=== PATIENT | male | born 1960 | race Two or more races ===

== ENCOUNTER 2017-06-17 17:51 | Inpatient (IN) | payer OTHER ==
[~2017-06-17] VITALS: Ht 175.3 cm; Wt 102.7 kg
[2017-06-17] MEDS ORDERED: RIVA10TA PO (18:00)
[2017-06-17] MEDS ORDERED: ALBU8.5H2 IH (18:00)
[2017-06-17] MEDS ORDERED: CARB-93 PO (18:00)
--- NOTE | 2017-06-17 18:00 | NUR ---
PATIENT BIB RA 39, FOUND IN A W/C INFRONT OF APARTMENT COMPLEX,ALTERED MENTAL STATUS. PATIENT IS CURRENTLY A/OX 2, LETHARGIC, BUT AROUSABLE. ABLE TO FOLLOW DIRECTION. PATIENT BREATHING EVEN AND UNLABORED ON ROOM AIR. NO SOB. VITALS STABLE. SAFETY AND COMFORT MEASURES IN PLACE. AWAITING MD ORDERS.
--- NOTE | 2017-06-17 18:25 | NUR ---
NEW IV STARTED ON RAC, 18 G. BLOOD DRAWN AND SENT TO LAB.
--- NOTE | 2017-06-17 18:30 | NUR ---
URINE OBTAINED AND SENT TO LAB.
[2017-06-17 18:32] LABS: BASOPHILS % (AUTO) 0.5 % (0.0-2.0); EOSINOPHILS # (AUTO) 0.3 /CMM (0.0-0.7); EOSINOPHILS % (AUTO) 6.7 % (0.0-6.0); HEMATOCRIT 43 % (39-51); HEMOGLOBIN 14.4 g/dL (13.5-17.5); LYMPHOCYTES # (AUTO) 1.9 /CMM (0.8-4.8); LYMPHOCYTES % (AUTO) 36.5 % (20.0-44.0); MEAN CORPUSCULAR HEMOGLOBIN 30 PG (26.0-33.0); MEAN CORPUSCULAR HGB CONC 34 g/dl (31.0-36.0); MEAN CORPUSCULAR VOLUME 87 fL (80-96); MONOCYTES # (AUTO) 0.3 /CMM (0.1-1.30); MONOCYTES % (AUTO) 6.4 % (2.0-12.0); NEUTROPHILS # (AUTO) 2.6 /CMM (1.8-8.9); NEUTROPHILS % (AUTO) 49.9 % (43.0-81.0); PLATELET COUNT (AUTO) 237 /CMM (150-450); RDW COEFFICIENT OF VARIATION 13.7 (11.5-15.0); RED BLOOD CELL COUNT(AUTO) 4.89 MIL/uL (4.5-6.0); WHITE BLOOD COUNT (AUTO) 5.2 K/uL (4.3-11.0)
--- NOTE | 2017-06-17 18:35 | NUR ---
PATIENT TAKEN TO CT VIA STRETCHER.
[2017-06-17 18:44] LABS: SERUM AMMONIA 10 umol/L (11-32)
--- NOTE | 2017-06-17 18:49 | NUR ---
PATIENT RETURNED FROM CT IN STABLE CONDITION.
[2017-06-17 18:50] LABS: CALCIUM, SERUM 8.1 mg/dL (8.5-10.1); CARBON DIOXIDE 23 mmol/L (21-32); CHLORIDE 105 mmol/L (98-107); CREATININE 0.9 mg/dL (0.6-1.3); GLUCOSE 142 mg/dL (74-106); INR 0.98 (0.87-1.13); POTASSIUM 3.5 mmol/L (3.5-5.1); PROTHROMBIN TIME 10.2 SECS (9.5-12.7); SODIUM SERUM 138 mmol/L (136-145); UREA NITROGEN, BLOOD 12 mg/dL (7-18)
[2017-06-17 18:54] LABS: ALANINE AMINOTRANSFERASE 11 U/L (12-78); ALBUMIN 3.4 g/dL (3.4-5.0); ALCOHOL, BLOOD 15 mg/dL (0-0); ALKALINE PHOSPHATASE 92 U/L (46-116); ASPARTATE AMINOTRANSFERASE 31 U/L (15-37); BILIRUBIN,TOTAL 0.3 mg/dL (0.2-1.0)
[2017-06-17 18:54] LABS: APPEARANCE,URINE Clear (CLEAR); BILIRUBIN,URINE Negative (NEGATIVE); BLOOD, URINE Small Ery/uL (NEGATIVE); COLOR,URINE Yellow (YELLOW); KETONES,URINE Negative (NEGATIVE); LEUKOCYTE ESTERASE ,URINE Small (NEGATIVE); NITRITE, URINE Positive (NEGATIVE); PH,URINE 5.5 (5.0-8.0); PROTEIN,URINE Negative (NEGATIVE); UGLUCOSE Negative (NEGATIVE); UROBILINOGEN,URINE 0.2 EU/dL (0.2)
[2017-06-17 18:55] LABS: ACETAMINOPHEN < 2 ug/ml (10-30); SALICYLATE 1.6 mg/dL (2.8-20.0); TROPONIN I < 0.017 ng/mL (0.00-0.056)
[2017-06-17 18:59] LABS: BACTERIA,URINE Many /HPF (None Seen); RBC,URINE 0-2 /HPF (0-2)
[2017-06-17 19:00] LABS: SQUAMOUS EPITHELIAL CELL,UR Few /HPF (None Seen); WBC,URINE 81-100 /HPF (0-3)
--- NOTE | 2017-06-17 19:24 | NUR ---
CALLED [employer] DIET CONSULTANT WAS PAGED.
--- NOTE | 2017-06-17 19:43 | NUR ---
REPORT GIVEN TO WILLIAN MARTÍNEZ FOR DAXA.
--- NOTE | 2017-06-17 20:40 | NUR ---
RN NOTES ADMITTED A 56 YEARS OLD MALE PT FROM ER WITH PRIMARY DIAGNOSIS OF SEPSIS UNDER DR BELLO. PT IS ALERT AND ORIENTED X3, NO SOB, NOT IN DISTRESS, ON ROOM AIR WITH GOOD SATURATION. PT VERBALIZED MILD HEADACHE, DECLINE TO TAKE PAIN PILL AT THIS TIME. ATTACHED TO TELE MONITOR WHICH READS SINUS BRADYCARDIA WITH HEART RATE AT 55. IV ACCESS ON RIGHT AC PATENT AND INTACT. SKIN CLEAR AND INTACT. WITH SUPRAPUBIC CATHETER INTACT, WITH CLEAR URINE OUTPUT WITH STRONG SCENT OF URINE NOTED. KEPT COMFORTABLE AND ATTENDED. FALL PRECAUTION OBSERVED. ALL ORDERS NOTED AND CARRIED OUT.
[2017-06-17 20:45] VITALS: BP 121/73
--- NOTE | 2017-06-17 21:00 | NUR ---
RN NOTES PT HAS AN ORDER FOR 1:1 SITTER, CHARGE NURSE AND BEHAVIORIST MADE AWARE. NO SITTER AVAILABLE AT THIS TIME, WILL DO FREQUENT VISUAL CHECK FOR SAFETY. DR BELLO MADE AWRE.
--- NOTE | 2017-06-17 21:43 | NUR ---
RN NOTES PT COMPLAINS OF HEADACHE, TYLENOL 650 MG TAB GIVEN PO AND TOLERATED WELL. WILL CONTINUE TO MONITOR PT.
[2017-06-17 23:42] VITALS: BP 121/73
[2017-06-18] VITALS: BP 133/78
--- NOTE | 2017-06-18 02:30 | NUR ---
RN NOTES SEEN AND EXAMINED BY DR BELLO, NEW ORDERS MADE AND CARRIED OUT.
[2017-06-18 04:00] VITALS: BP 119/73
--- NOTE | 2017-06-18 04:03 | NUR ---
RN NOTES PT COMPLAINS OF PAIN ON SUPRA PUBIC AREA 05/10, MORPHINE SULFATE 2MG GIVEN IV. WILL CONTINUE TO MONITOR PT.
[2017-06-18 07:08] VITALS: BP 133/80
--- NOTE | 2017-06-18 07:11 | NUR ---
RN NOTES PT ASLEEP, HOB ELEVATED, BREATHING REGULAR AND UNLABORED, ON ROOM AIR WITH GOOD SATURATION. VITAL SIGNS STABLE,AFEBRILE. TELEMONITOR READS SINUS BRADYCARDIA AT 53. NO EPISODE OF SEIZURE, NO EPISODE OF NAUSEA AND VOMITING. PAIN AT TOLERABLE LEVEL. SUPRA PUBIC CATH INTACT, NOTED WITH SEDIMENTS ON THE URINE. ALL NEEDS ATTENDED. FREQUENT VISUAL CHECK DONE. WILL ENDORSE TO MORNING RN FOR CONTINUITY OF CARE.
--- NOTE | 2017-06-18 07:30 | NUR ---
RN OPEN NOTES RECEIVED REPORT FROM VETERINARY SURGERY TECHNOLOGIST NURSE. WILL CONTINUE TO MONITOR AND ASSESS PATIENT
[2017-06-18 07:33] LABS: INR 0.94 (0.87-1.13)
[2017-06-18 07:36] LABS: BASOPHILS % (AUTO) 0.8 % (0.0-2.0); EOSINOPHILS # (AUTO) 0.4 /CMM (0.0-0.7); EOSINOPHILS % (AUTO) 8.5 % (0.0-6.0); HEMATOCRIT 40 % (39-51); HEMOGLOBIN 13.6 g/dL (13.5-17.5); MEAN CORPUSCULAR HEMOGLOBIN 30 PG (26.0-33.0); MEAN CORPUSCULAR HGB CONC 34 g/dl (31.0-36.0); MEAN CORPUSCULAR VOLUME 87 fL (80-96); MONOCYTES # (AUTO) 0.5 /CMM (0.1-1.30); MONOCYTES % (AUTO) 9.4 % (2.0-12.0); NEUTROPHILS # (AUTO) 2.1 /CMM (1.8-8.9); NEUTROPHILS % (AUTO) 41.3 % (43.0-81.0); PLATELET COUNT (AUTO) 229 /CMM (150-450); RDW COEFFICIENT OF VARIATION 13.6 (11.5-15.0); RED BLOOD CELL COUNT(AUTO) 4.54 MIL/uL (4.5-6.0); WHITE BLOOD COUNT (AUTO) 5.1 K/uL (4.3-11.0)
[2017-06-18 08:02] LABS: BILIRUBIN,TOTAL 0.3 mg/dL (0.2-1.0); CALCIUM, SERUM 8.1 mg/dL (8.5-10.1); CREATININE 0.9 mg/dL (0.6-1.3); TOTAL PROTEIN, SERUM 6.1 g/dL (6.4-8.2)
[2017-06-18 08:26] LABS: CREATINE KINASE MB 0.9 ng/mL (0-3.6)
[2017-06-18 16:00] VITALS: BP 138/81
--- NOTE | 2017-06-18 16:00 | NUR ---
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
--- NOTE | 2017-06-18 18:44 | NUR ---
RN CLOSING NOTES PATIENT IS ALERT AND ORIENTED TO TIME, PLACE AND NAME. NO SIGNS AND SYMPTOMS OF DISTRESS. DENIED PAIN. IV SITE IS PATENT AND INTACT. BED IN LOW POSITION, LOCKED AND TWO SIDE RAILS ARE UP. ALL NURSING CARE ANTICIPATED. PATIENT KEPT CLEAN AND DRY. PENDING PT IN AM. PENDING DR CAGE NEUROLOGIST CONSULT IN AM. ALL DUE MEDS WERE GIVEN. WILL ENDORSE TO GEAR GRINDING MACHINE OPERATOR NURSE
--- NOTE | 2017-06-18 19:20 | NUR ---
MS/RN OPENING NOTES PT AWAKE, SITTING UP IN BED, HIGH FOWLERS. ON ROOM AIR, BREATHING EVEN AND UNLABORED. NO S/S OF PAIN OR DISTRESS. TYLENOL ADMINISTERED FOR HEADACHE. A/OX4. SUPRAPUBIC CATH NOTED. IV TO RAC PATENT AND INTACT. BED IN LOW/LOCKED POSITION WITH CALL LIGHT IN REACH. SIDE RAILS UPX2. WILL CONTINUE TO MONITOR
[2017-06-18 20:00] VITALS: BP 144/81
--- NOTE | 2017-06-19 04:04 | NUR ---
MS/RN NOTES PT INITIALLY QUESTIONED/REFUSED SCHEDULED MYSOLINE DOSE, STATING THAT THE PREVIOUS NURSE SPOKE TO THE MD AND PLANNED TO HOLD DOSE UNTIL SEEN BY NEUROLOGIST. CHECKED LATEST MD REPORT AND MISUNDERSTOOD HIS NOTE. APPEARED THAT MEDICATION WAS STOPPED BECAUSE IT CAUSED HIS SEIZURE...REEDUCATED PT ABOUT MD WANTING TO CONTINUE HIS MEDICATION AND BE SEEN BY NEUROLOGIST. PT VERBALIZED UNDERSTANDING. MYSOLINE ADMINISTERED
--- NOTE | 2017-06-19 07:49 | NUR ---
MS/RN CLOSING NOTES PT AWAKE, SITTING UP IN BED. A/OX4. BREATHING EVEN AND UNLABORED. DENIES SOB OR PAIN AT THIS TIME. SUPRAPUBIC CATH IN PLACE AND DRAINING WELL. RAC PATENT AND INTACT. BED IN LOW/LOCKED POSITION WITH CALL LIGHT IN REACH. SIDE RAILS UPX2 AND BED ALARM ON FOR SAFETY. MADE PT COMFORTABLE DURING SHIFT. ALL NEEDS MET. ENDORSED TO AM SHIFT DAXA.
--- NOTE | 2017-06-19 07:50 | NUR ---
RESOURCE ANALYST NOTES PT AWAKE, IN BED. A/OX4. BREATHING EVEN AND UNLABORED. DENIES SOB OR PAIN AT THIS TIME. SUPRAPUBIC CATH IN PLACE AND DRAINING WELL. PIV ON RAC PATENT AND FLUSHES WELL. BED IN LOW/LOCKED POSITION WITH CALL LIGHT IN REACH. SIDE RAILS UPX2 AND BED ALARM ON FOR SAFETY. WILL CONTINUE TO MONITOR.
[2017-06-19 08:00] VITALS: BP 133/78
[2017-06-19 16:04] VITALS: BP 104/57
--- NOTE | 2017-06-19 19:02 | NUR ---
RN MS NOTES PATIENT ALERT AND ORIENTED, VERBALLY RESPONSIVE, DENIES PAIN AT THIS TIME, NO S/SX OF DISTRESS AT THIS TIME, PIV ON RAC PATENT AND FLUSHES WELL, PATIENT WAS SEEN BY SHIRA TOVAR ACTUARIAL CLERK, SUPRAPUBIC CATHETER PATENT AND DRAINING WELL WITH A TOTAL URINE OUTPUT OF 800CC DURING THE SHIFT, ALL NEEDS ATTENDED AND MET, SAFETY MEASURES IN PLACED, CALL LIGHT WITHIN REACH, WILL ENDORSE TO LAUNDRY OPERATOR FOR DAXA.
--- NOTE | 2017-06-19 19:30 | NUR ---
MS/RN NOTES PT RECEIVED SITTING UP IN BED. A/OX4, ON RA, BREATHING EVEN AND UNLABORED. IN ACUTE DISTRESS. DENIES PAIN. COOPERATIVE AND PLEASANT. SUPRAPUBIC CATHETER IN PLACE AND DRAINING WELL. NOTES THAT HE HAS AN APPT WITH HIS UROLOGIST TOMORROW AT 1400 TO CHANGE HIS CATHETER. ASKING IS IT WILL BE CHANGED IF HE DOESNT GET DISCHARGED TOMORROW. INFORMED HIM THAT IT IS UP TO THE DOCTOR AND WILL HAVE TO ENDORSE TO DAY SHIFT TO FOLLOW UP. SEEN BY DR. CAGE TODAY. BED IN LOW/LOCKED POSITION, CALL LIGHT IN REACH. SIDE RAILS UP. WILL CONTINUE TO MONITOR
[2017-06-19 20:00] VITALS: BP 103/63
--- NOTE | 2017-06-20 06:27 | NUR ---
MS/RN CLOSING NOTES PT ASLEEP, BREATHING EVEN AND UNLABORED. ON RA. NO DISTRESS NOTED. IV TO RAC PATENT AND INTACT. SUPRAPUBIC CATH DRAINING WELL. DENIES SOB OR PAIN. MADE PT COMFORTABLE THROUGHOUT SHIFT. ALL NEEDS MET AND ATTENDED. SLEPT WELL DURING THE NIGHT. FOR POSSIBLE DISCHARGE TODAY. WILL ENDORSE TO AM SHIFT DAXA.
--- NOTE | 2017-06-20 07:15 | NUR ---
MS RN OPENING NOTES RELIEVED PT FROM NIGHTSHIFT NURSE IN STABLE CONDITION. PT IS A.O X4. NO SOB OR SIGNS OF DISTRESS NOTED. BREATHING IS EVEN AND UNLABORED. PT DENIES ANY FEVER OR CHILLS AT THIS TIME. SUPRAPUBIC CATHETER INTACT AND DRAINING CLEAR YELLOW URINE. CATHETER INSERTION SITE SHOWS NO VISIBLE SITE OF INFECTION. SITE IS DRY AND CLEAN. NO ODOR ASSOCIATED WITH SITE. IV PRESENT ON RIGHT AC 18G. IV IS PATENT AND INTACT. NO REDNESS OR SIGNS OF INFILTRATION NOTED. BED IN LOW LOCKED POSITION, SIDE RAILS UP X3, CALL LIGHT WITHIN REACH. WILL CONTINUE TO MONITOR.
[2017-06-20 07:44] LABS: BASOPHILS % (AUTO) 0.5 % (0.0-2.0); EOSINOPHILS # (AUTO) 0.3 /CMM (0.0-0.7); EOSINOPHILS % (AUTO) 5.1 % (0.0-6.0); HEMATOCRIT 43 % (39-51); HEMOGLOBIN 14.8 g/dL (13.5-17.5); LYMPHOCYTES # (AUTO) 1.4 /CMM (0.8-4.8); LYMPHOCYTES % (AUTO) 21.8 % (20.0-44.0); MEAN CORPUSCULAR HEMOGLOBIN 30 PG (26.0-33.0); MEAN CORPUSCULAR HGB CONC 34 g/dl (31.0-36.0); MEAN CORPUSCULAR VOLUME 87 fL (80-96); MONOCYTES # (AUTO) 0.6 /CMM (0.1-1.30); MONOCYTES % (AUTO) 9.5 % (2.0-12.0); NEUTROPHILS # (AUTO) 4.1 /CMM (1.8-8.9); NEUTROPHILS % (AUTO) 63.1 % (43.0-81.0); PLATELET COUNT (AUTO) 233 /CMM (150-450); RDW COEFFICIENT OF VARIATION 13.9 (11.5-15.0); RED BLOOD CELL COUNT(AUTO) 4.96 MIL/uL (4.5-6.0); WHITE BLOOD COUNT (AUTO) 6.5 K/uL (4.3-11.0)
[2017-06-20 07:51] LABS: CALCIUM, SERUM 8.7 mg/dL (8.5-10.1); CREATININE 0.9 mg/dL (0.6-1.3)
[2017-06-20 08:00] VITALS: BP 127/72
--- NOTE | 2017-06-20 12:06 | NUR ---
MS INSTALLER METAL FLOORING NOTES PT WAS DISCHARGED FROM FACILITY IN STABLE CONDITION. ALL NEEDS WERE MET DURING SHIFT AND ORDERS CARRIED OUT ACCORDINGLY. ALL DISCHARGE INSTRUCTIONS DISCUSSED IN DETAIL WITH THE PATIENT AND HIS CAREGIVER. THE PT. EXPRESSED COMPLETE UNDERSTANDING OF DISCHARGE INSTRUCTIONS AND SIGNED ALL DISCHARGE PAPERWORK. ALL BELONGINGS WERE SENT HOME WITH THE PT. BELONGINGS FORM SIGNED BY PT. PT WAS SAFELY WHEELED DOWN BY KERLINE THE MANUFACTURED BUILDINGS REPAIRER AND LEFT THE HOSPITAL VIA PRIVATE VEHICLE DRIVEN BY HIS CAREGIVER.
== END 2017-06-20 11:57 | disposition home health service (06) | DRG 53 ==
LOC: ER 17:55 → TELE 19:53 → MED 06-18 08:30
PROVIDERS: ADMIT Internal Medicine; ATTEND Internal Medicine
DX: R56.9 Unspecified convulsions (principal); G93.41 Metabolic encephalopathy; D68.59 Other primary thrombophilia; G20 Parkinson's disease; R53.2 Functional quadriplegia; E44.0 Moderate protein-calorie malnutrition; E83.51 Hypocalcemia; G62.9 Polyneuropathy, unspecified; N39.0 Urinary tract infection, site not specified; G25.0 Essential tremor; I10 Essential (primary) hypertension; K21.9 Gastro-esophageal reflux disease without esophagitis; J44.9 Chronic obstructive pulmonary disease, unspecified; M81.0 Age-related osteoporosis without current pathological fracture; Z86.718 Personal history of other venous thrombosis and embolism; Z86.711 Personal history of pulmonary embolism; Z99.3 Dependence on wheelchair; E66.9 Obesity, unspecified; Z68.33 Body mass index [BMI] 33.0-33.9, adult; N31.9 Neuromuscular dysfunction of bladder, unspecified; B96.89 Other specified bacterial agents as the cause of diseases classified elsewhere
CPT/HCPCS: 36415; 70450-TC; 71010-TC; 80048-TC; 80053-TC; 80076-TC; 80305; 81000-TC; 82140-TC; 82553-TC; 83605-TC; 84443-TC; 84484-TC; 85025-TC; 85610-TC; 85730-TC; 87040-TC; 87081-TC; 87086-TC; 87186-TC; 93307-TC; 95819-TC; A4606; A6402; G0480; J0696; J2270; J2405; J7030; J7050; J7060; Z7610

== ENCOUNTER 2022-06-12 10:03 | Emergency (ER) | payer MEDICAID, OTHER ==
[~2022-06-12] VITALS: Ht 175.3 cm; Wt 90.7 kg
[~2022-06-12 10:03] MED LIST: ALBU8.5H8 IH; CARB-300 PO; RIVA10TA PO
[2022-06-12] MEDS ORDERED: GABA100C PO (10:19)
[2022-06-12] MEDS ORDERED: MOME13HF2 INH (10:19)
[2022-06-12] MEDS ORDERED: CARB1TAB21 PO (10:19)
[2022-06-12] MEDS ORDERED: PANT40TA49 PO (10:19)
--- NOTE | 2022-06-12 10:25 | NUR ---
[id number] from home, c/o sob while walking in the bathroom, and BLE edema. On room air, breathing evenly and unlabored. Connected to the monitor and pulse ox. kept comfortable, will continue to monitor accordingly.
--- NOTE | 2022-06-12 10:28 | NUR ---
IV access initiated and blood drawned and sent to lab.
[2022-06-12 10:43] LABS: BASOPHILS % (AUTO) 0.7 % (0.0-2.0); EOSINOPHILS % (AUTO) 4.3 % (0.0-6.0); HEMATOCRIT 49 % (39-51); HEMOGLOBIN 16.7 g/dL (13.5-17.5); LYMPHOCYTES # (AUTO) 2.1 K/uL (0.8-4.8); LYMPHOCYTES % (AUTO) 33.1 % (20.0-44.0); MEAN CORPUSCULAR HGB CONC 34 g/dl (31.0-36.0); MEAN CORPUSCULAR VOLUME 89 fL (80-96); MONOCYTES # (AUTO) 0.3 K/uL (0.1-1.30); MONOCYTES % (AUTO) 5.1 % (2.0-12.0); NEUTROPHILS # (AUTO) 3.7 K/uL (1.8-8.9); NEUTROPHILS % (AUTO) 56.8 % (43.0-81.0); PLATELET COUNT (AUTO) 259 K/uL (150-450); RED BLOOD CELL COUNT(AUTO) 5.47 MIL/uL (4.5-6.0); WHITE BLOOD COUNT (AUTO) 6.5 K/uL (4.3-11.0)
[2022-06-12 11:21] LABS: ALANINE AMINOTRANSFERASE 54 U/L (12-78); ALBUMIN 3.7 g/dL (3.4-5.0); ALKALINE PHOSPHATASE 87 U/L (46-116); ASPARTATE AMINOTRANSFERASE 26 U/L (15-37); BILIRUBIN,DIRECT 0.1 mg/dL (0.0-0.2); BILIRUBIN,TOTAL 0.4 mg/dL (0.2-1.0); CALCIUM, SERUM 8.7 mg/dL (8.5-10.1); CARBON DIOXIDE 26 mmol/L (21-32); CHLORIDE 105 mmol/L (98-107); CREATININE 0.9 mg/dL (0.6-1.3); GLUCOSE 136 mg/dL (74-106); POTASSIUM 3.8 mmol/L (3.5-5.1); SODIUM SERUM 140 mmol/L (136-145); TOTAL PROTEIN, SERUM 7.6 g/dL (6.4-8.2); UREA NITROGEN, BLOOD 18 mg/dL (7-18)
--- NOTE | 2022-06-12 13:13 | NUR ---
IV removed. Catheter intact and site benign. Pressure and 4x4 applied to site. No bleeding noted.Patient discharged to home in stable condition. Written and verbal after care instructions given. Patient verbalizes understanding of instruction. Assisted patient to waiting room via wheelchair. Will set up his own grain picker from his insurance.
[2022-06-12 13:15] VITALS: BP 152/87
== END 2022-06-12 13:16 | disposition home or self-care (01) ==
LOC: ER 10:06
DX: I82.403 Acute embolism and thrombosis of unspecified deep veins of lower extremity, bilateral (principal); G20 Parkinson's disease; Z86.69 Personal history of other diseases of the nervous system and sense organs; Z86.718 Personal history of other venous thrombosis and embolism; Z88.2 Allergy status to sulfonamides; Z88.8 Allergy status to other drugs, medicaments and biological substances; Z79.899 Other long term (current) drug therapy
CPT/HCPCS: 36415; 71045-TC; 80048-TC; 80076-TC; 83880; 84484-TC; 85025-TC; 85730-TC; 93970-TC

== ENCOUNTER 2022-06-14 11:16 | Emergency (ER) | payer MEDICAID ==
[~2022-06-14] VITALS: Ht 175.3 cm; Wt 90.7 kg
[~2022-06-14 11:16] MED LIST changes: +CARB1TAB21 PO; +GABA100C PO; +MOME13HF2 INH; +PANT40TA49 PO
[2022-06-14] MEDS ORDERED: IV NS 0.9% 1,000 ML BAG IV ONE (11:30)
--- NOTE | 2022-06-14 12:00 | NUR ---
Patient mayra from home, girlfriend noticed he is having blank stare with confusion. On room air, breathing evenly and unlabored. C/o R leg pain. Kept comfortable, will continue to monitor accordingly. Connected to the monitor and pulse ox. Kept comfortable, will continue to monitor accordingly.
[2022-06-14 12:21] LABS: BASOPHILS % (AUTO) 0.7 % (0.0-2.0); EOSINOPHILS % (AUTO) 4.7 % (0.0-6.0); HEMATOCRIT 47 % (39-51); HEMOGLOBIN 16.3 g/dL (13.5-17.5); LYMPHOCYTES # (AUTO) 1.6 K/uL (0.8-4.8); LYMPHOCYTES % (AUTO) 27.7 % (20.0-44.0); MEAN CORPUSCULAR HGB CONC 34 g/dl (31.0-36.0); MEAN CORPUSCULAR VOLUME 90 fL (80-96); MONOCYTES # (AUTO) 0.3 K/uL (0.1-1.30); MONOCYTES % (AUTO) 4.8 % (2.0-12.0); NEUTROPHILS # (AUTO) 3.7 K/uL (1.8-8.9); NEUTROPHILS % (AUTO) 62.1 % (43.0-81.0); PLATELET COUNT (AUTO) 275 K/uL (150-450); RED BLOOD CELL COUNT(AUTO) 5.26 MIL/uL (4.5-6.0); WHITE BLOOD COUNT (AUTO) 5.9 K/uL (4.3-11.0)
[2022-06-14 12:39] LABS: CARBON DIOXIDE 25 mmol/L (21-32); CHLORIDE 105 mmol/L (98-107); GLUCOSE 206 mg/dL (74-106); POTASSIUM 4.1 mmol/L (3.5-5.1); SODIUM SERUM 138 mmol/L (136-145); UREA NITROGEN, BLOOD 18 mg/dL (7-18)
[2022-06-14 12:45] LABS: ALANINE AMINOTRANSFERASE 58 U/L (12-78); ALBUMIN 3.8 g/dL (3.4-5.0); ALCOHOL, BLOOD < 3 mg/dL (0-0); ALKALINE PHOSPHATASE 87 U/L (46-116); ASPARTATE AMINOTRANSFERASE 27 U/L (15-37); BILIRUBIN,DIRECT 0.1 mg/dL (0.0-0.2); BILIRUBIN,TOTAL 0.5 mg/dL (0.2-1.0); TOTAL PROTEIN, SERUM 7.5 g/dL (6.4-8.2)
[2022-06-14 13:10] VITALS: BP 132/52
--- NOTE | 2022-06-14 13:41 | NUR ---
IV removed. Catheter intact and site benign. Pressure and 4x4 applied to site. No bleeding noted.
[2022-06-14] MEDS ORDERED: LEVE1000 PO ×2 (14:07→14:09)
== END 2022-06-14 13:42 | disposition home or self-care (01) ==
LOC: ER 11:18
DX: R40.4 Transient alteration of awareness (principal); Z86.69 Personal history of other diseases of the nervous system and sense organs; Z86.718 Personal history of other venous thrombosis and embolism; Z88.2 Allergy status to sulfonamides; Z88.8 Allergy status to other drugs, medicaments and biological substances; Z79.899 Other long term (current) drug therapy
CPT/HCPCS: 99285; 96360; 93005; 71045; 70450; 85025; 80048; 80076; 36415; 85730; 82962; 80320; J7030; G0480

== ENCOUNTER 2022-08-21 11:51 | Emergency (ER) | payer MEDICAID ==
[~2022-08-21] VITALS: Ht 180.3 cm; Wt 97.5 kg
[~2022-08-21 11:51] MED LIST changes: +LEVE1000 PO
--- NOTE | 2022-08-21 12:03 | NUR ---
[facility] [employer] Jazmine MIXON([phone])called and stated the pt. is receiving housing through one of their [facility] housing programs, and pt. does not have caregiver at home so she wants to make sure if pt. is sent back he will not need caregiving as he lives alone. Noted. SW asked Jazmine if pt. has been enrolled for [facility] and she stated she is working on finding caregiver through [facility] but client does not have one assigned yet. Pt. has to choose a caregiver per Jazmine.
--- NOTE | 2022-08-21 12:05 | NUR ---
PT TESTED + ON BUT FELT SHORT OF BREATH. SLEEPS W SUP O2. HAD BLOOD CLOT LAST MONTH PER [facility].
--- NOTE | 2022-08-21 12:08 | NUR ---
[id number] HOME FOR WORSENING BODYACHE, COUGH AND CONGESTION,+COVID X SUNDAY. COUGH WORST LAYING DOWN. PLACED ON BED, AAOX4, BREATHING EVEN AND UNLABORED SATURATING AT 96%RA.
[2022-08-21] MEDS ORDERED: IBUPROFEN 600 MG TABLET ONE (12:15)
--- NOTE | 2022-08-21 12:20 | NUR ---
X-RAY TECH AT BEDSIDE
[2022-08-21] MEDS ORDERED: IBUPROFEN 600 MG TABLET PO ONE (12:30)
--- NOTE | 2022-08-21 12:40 | NUR ---
CONTACTED [facility] [phone] MADE AWARE THAT PATIENT IS DISCHARGE.
--- NOTE | 2022-08-21 12:50 | NUR ---
[facility] CALLED FOR TRANSPORT ETA 60 MINS.
--- NOTE | 2022-08-21 14:29 | NUR ---
PATIENT IS DISCHARGE AND PICKUP BY [facility] STAFF IN A STABLE CONDITION
[2022-08-21 14:30] VITALS: BP 140/79
== END 2022-08-21 14:29 | disposition home or self-care (01) ==
LOC: ER 11:54
DX: U07.1 COVID-19 (principal); J44.9 Chronic obstructive pulmonary disease, unspecified; Z86.718 Personal history of other venous thrombosis and embolism; Z88.2 Allergy status to sulfonamides; Z88.8 Allergy status to other drugs, medicaments and biological substances; Z79.899 Other long term (current) drug therapy
CPT/HCPCS: 71045-TC

== ENCOUNTER 2025-02-11 08:15 | Emergency (ER) | payer MEDICAID, OTHER ==
[~2025-02-11] VITALS: Ht 175.3 cm; Wt 93.0 kg
[2025-02-11] MEDS ORDERED: FENTANYL PF 100MCG/2ML AMPUL ONE (08:28)
[2025-02-11] MEDS: IV NS 0.9% 500 ML BAG IV ONE (08:30)
[2025-02-11] MEDS: FENTANYL PF 100MCG/2ML AMPUL IV ONE (08:35)
[2025-02-11] MEDS ORDERED: HYDROMORPHONE 1 MG/1 ML DISP.SYRIN ONE (09:06)
[2025-02-11] MEDS: HYDROMORPHONE 1 MG/1 ML DISP.SYRIN IV ONE (09:09)
[2025-02-11] MEDS ORDERED: HYDR-4303 PO (09:36)
[2025-02-11 11:03] VITALS: BP 141/81; TEMP 98.5; O2SAT 100
== END 2025-02-11 11:05 | disposition home or self-care (01) ==
LOC: ER 08:17
DX: S43.101A Unspecified dislocation of right acromioclavicular joint, initial encounter (principal); S59.901A Unspecified injury of right elbow, initial encounter; G20.A1 Parkinson's disease without dyskinesia, without mention of fluctuations; J44.9 Chronic obstructive pulmonary disease, unspecified; Z79.51 Long term (current) use of inhaled steroids; Z79.01 Long term (current) use of anticoagulants; Z79.899 Other long term (current) drug therapy; Z86.718 Personal history of other venous thrombosis and embolism; Z88.1 Allergy status to other antibiotic agents; Z88.2 Allergy status to sulfonamides; Z88.5 Allergy status to narcotic agent; Z60.2 Problems related to living alone; W05.0XXA Fall from non-moving wheelchair, initial encounter; Y93.89 Activity, other specified; Y92.89 Other specified places as the place of occurrence of the external cause; Y99.8 Other external cause status
CPT/HCPCS: 29105; 73030; 73060; 73080; 96374; 96375; 99284; J1171; J3010; J7040